=== PATIENT | female | born 1975 | race Caucasian/White ===

== ENCOUNTER 2017-01-30 17:22 | Emergency (ER) | payer MEDICAID ==
[2017-01-30 18:03] VITALS: BP 123/72
--- NOTE | 2017-01-30 19:26 | UC ---
Lower Extremity/Ankle HPI - HPI Summary HPI Summary: right lower lateral leg pain, tingling pain above lateral ankle---no calf pain, no cord or erythema - History of Current Complaint Chief Complaint: UCLowerExtremity Stated Complaint: RT LEG PAIN,TINGLING,SWELLING,BURNING FEELING Time Seen by Provider: 01/30/17 19:17 Hx Obtained From: Patient Hx Last Menstrual Period: ablasion ?: No Onset/Duration: Gradual Onset, Lasting Weeks, Still Present Severity Initially: Moderate Severity Currently: Moderate Pain Intensity: 8 Pain Scale Used: 0-10 Numeric Aggravating Factor(s): Standing, Ambulation Alleviating Factor(s): Rest, Elevation Able to Bear Weight: Yes - Allergies/Home Medications Allergies/Adverse Reactions: Allergies Allergy/AdvReac Type Severity Reaction Status Date / Time No Known Allergies Allergy Verified 01/30/17 17:59 PMH/Surg Hx/FS Hx/Imm Hx Previously Healthy: Yes - Surgical History Surgical History: Yes Surgery Procedure, Year, and Place: 3 c-sections. choley, uterine ablasion, 2 knee surgeries, exp lap - Family History Known Family History: Positive: None Family History: no reported cardiovascular issues in family lineage - Social History Occupation: Employed Full-time Lives: With Family Alcohol Use: Rare Substance Use Type: None Smoking Status (MU): Heavy Every Day Tobacco Smoker Type: Cigarettes Cessation Counseling: Counseled 3+Min - 10 Min Review of Systems Constitutional: Negative Skin: Negative Eyes: Negative ENT: Negative Respiratory: Negative Cardiovascular: Negative Gastrointestinal: Negative Genitourinary: Negative Motor: Negative Neurovascular: Negative Musculoskeletal: Arthralgia - lateral lower lright leg pain Neurological: Negative Psychological: Negative All Other Systems Reviewed And Are Negative: Yes Physical Exam Triage Information Reviewed: Yes Appearance: Well-Appearing, No Pain Distress, Well-Nourished Vital Signs: Initial Vital Signs Temp 99.1 F 01/30/17 18:01 Pulse 86 01/30/17 18:01 Resp 18 01/30/17 18:01 BP 123/72 01/30/17 18:01 Pulse Ox 98 01/30/17 18:01 Vital Signs Reviewed: Yes Eye Exam: Normal Eyes: Positive: Conjunctiva Clear ENT Exam: Normal ENT: Positive: Normal ENT inspection, Hearing grossly normal. Negative: Nasal congestion, Nasal drainage, Trismus, Muffled/hoarse voice Dental Exam: Normal Neck exam: Normal Neck: Positive: Supple, Nontender Respiratory Exam: Normal Respiratory: Positive: Chest non-tender, No respiratory distress, No accessory muscle use Cardiovascular Exam: Normal Cardiovascular: Positive: RRR, Pulses Normal, Brisk Capillary Refill Musculoskeletal Exam: Normal Musculoskeletal: Positive: Strength Intact, ROM Intact, No Edema Neurological Exam: Normal Neurological: Positive: Alert, Muscle Tone Normal Psychological Exam: Normal Skin Exam: Normal Diagnostics - Radiology No standard instances Xray Interpretation: No Acute Changes Radiology Interpretation Completed By: Radiologist Lower Extremity Course/Dx - Course Course Of Treatment: crutches, rice, pain med follow with ortho - Differential Dx/Diagnosis Differential Diagnosis/HQI/PQRI: Contusion, Fracture (Closed), Sprain, Strain, Tendonitis Provider Diagnoses: right peroneal tendonitis Discharge - Discharge Plan Condition: Stable Disposition: HOME Prescriptions: Hydrocodone-Acetaminophen [Hydrocodone/Acetaminophen 5-325 mg] 1 tab PO Q6H PRN #12 tab MDD 4 PRN Reason: pain Ibuprofen TAB* [Motrin TAB* 600 MG] 600 mg PO Q6H PRN #40 tab PRN Reason: pain Patient Education Materials: Crutch Instructions (ED), Tendinitis (ED) Referrals: Trixie Rodriguez MD [Medical Doctor] - 5 Days
[2017-01-30] MEDS ORDERED: Ibuprofen TAB* 600 MG PO ONE (19:27)
--- NOTE | 2017-01-30 20:21 | RAD ---
Indication: Pain and tenderness to touch RIGHT lower leg and ankle without proceeding injury. Swelling. Comparison: No relevant prior exams available on the [facility] [place] for comparison. Technique: AP and lateral views RIGHT lower leg. AP, lateral, and oblique views of the RIGHT ankle. Report: Normal articular alignment. No significant arthropathic change evident. Negative for fracture or radiographic stigmata of stress reaction. Unremarkable soft tissue contours. IMPRESSION: Negative radiographic exam of the RIGHT lower leg and ankle.
--- NOTE | 2017-01-30 20:21 | RAD ---
Indication: Pain and tenderness to touch RIGHT lower leg and ankle without proceeding injury. Swelling. Comparison: No relevant prior exams available [place] the [facility] [place]. Technique: AP and lateral views RIGHT lower leg. AP, lateral, and oblique views of the RIGHT ankle. Report: Normal articular alignment. No significant arthropathic change evident. Negative for fracture or radiographic stigmata of stress reaction. Unremarkable soft tissue contours. IMPRESSION: Negative radiographic exam of the RIGHT lower leg and ankle.
[2017-01-30] MEDS ORDERED: HYDROcodone/ACETAMIN 5-325 MG* 1 TAB PO ONE (20:34)
== END 2017-01-30 21:22 | disposition home or self-care (01) ==
LOC: UCEAST 17:22
DX: M76.71 Peroneal tendinitis, right leg (principal); F17.210 Nicotine dependence, cigarettes, uncomplicated
CPT/HCPCS: 99213; A9270-GY; G0463

== ENCOUNTER 2019-02-12 09:16 | Emergency (ER) | payer SELFPAY ==
[2019-02-12] MEDS ORDERED: Morphine 4 MG/ML VIAL (1 ml) 4 MG/ML VIAL IV ONE ×2 (09:30→10:37)
[2019-02-12] MEDS ORDERED: Ondansetron INJ* 2 MG/ML VIAL IV ONE (09:30)
[2019-02-12] MEDS ORDERED: NS 0.9% 1000 ML** 1,000 ML IV ONE (09:30)
--- NOTE | 2019-02-12 09:30 | ED ---
Abdominal Pain/Female - HPI Summary HPI Summary: The patient is a 43 y/o F presenting to [facility] with a chief complaint of sudden onset LUQ pain this morning. She reports she was sitting down at work when the pain began. The pain does not radiate but is described as a sharp pain rated 4/ 10 in severity. There are no aggravating or alleviating factors. She additionally c/o nausea and dizziness. She denies fever, CP, vomiting, and rash. Hx of IBS. Surgical hx of cholecystectomy. FHx of DM, cardiac disease, HTN. Current every day smoker, occasional EtOH, no substance use. - History of Current Complaint Chief Complaint: EDGeneral Stated Complaint: BACK PAIN Time Seen by Provider: 02/12/19 09:22 Hx Obtained From: Patient Hx Last Menstrual Period: ablasion Onset/Duration: Sudden Onset, Lasting Minutes, Still Present Timing: Constant Severity Initially: Mild Severity Currently: Moderate Pain Intensity: 4 Pain Scale Used: 0-10 Numeric Location: Discrete At: LUQ Radiates: No Character: Sharp Aggravating Factor(s): Nothing Alleviating Factor(s): Nothing Associated Signs and Symptoms: Positive: Nausea, Other: - NEGATIVE: rash. Negative: Fever, Chest Pain, Vomiting Allergies/Adverse Reactions: Allergies Allergy/AdvReac Type Severity Reaction Status Date / Time No Known Allergies Allergy Verified 02/12/19 09:24 Home Medications: Home Medications Multivitamins/Minerals TAB* [Theragran/minerals TAB*] 1 tab PO DAILY 02/12/19 [ History Confirmed 02/12/19] PMH/Surg Hx/FS Hx/Imm Hx Endocrine/Hematology History: Denies: Hx Diabetes, Hx Thyroid Disease Cardiovascular History: Denies: Hx Hypercholesterolemia, Hx Hypertension Respiratory History: Denies: Hx Asthma, Hx Chronic Obstructive Pulmonary Disease (COPD) GI History: Reports: Hx Gall Bladder Disease - cholecystectomy Denies: Hx Ulcer - Surgical History Surgery Procedure, Year, and Place: 3 c-sections. choley, uterine ablasion, 2 knee surgeries, exp lap. cholecystectomy Infectious Disease History: No Infectious Disease History: Denies: Hx Clostridium Difficile, Hx Hepatitis, Hx Human Immunodeficiency Virus (HIV), Hx of Known/Suspected MRSA, Hx Shingles, Hx Tuberculosis, Hx Known/ Suspected VRE, Hx Known/Suspected VRSA, History Other Infectious Disease, Traveled Outside the [place] in Last 30 Days - Family History Known Family History: Positive: Cardiac Disease, Hypertension, Diabetes - Social History Alcohol Use: Rare Hx Substance Use: No Substance Use Type: Reports: None Hx Tobacco Use: Yes Smoking Status (MU): Heavy Every Day Tobacco Smoker Type: Cigarettes Review of Systems Negative: Fever Negative: Chest Pain Positive: Abdominal Pain - LUQ, Nausea. Negative: Vomiting Negative: Rash Neurological: Other - POSITIVE: dizziness All Other Systems Reviewed And Are Negative: Yes Physical Exam - Summary Physical Exam Summary: VITAL SIGNS: Reviewed. GENERAL: Patient is a well-developed and nourished female who is lying comfortable in the stretcher. Patient is not in any acute respiratory distress. HEAD AND FACE: Normocephalic and atraumatic. EYES: PERRLA, EOMI x 2, No injected conjunctiva. EARS: Hearing grossly intact. Ear canals and tympanic membranes are WNL. MOUTH: Oropharynx within normal limits. NECK: Supple, trachea is midline, no adenopathy, no JVD. CHEST: Symmetric, no tenderness at palpation. LUNGS: Clear to auscultation bilaterally. No wheezing or crackles. CVS: RRR, S1 and S2 present, no murmurs or gallops appreciated. ABDOMEN: Soft, LUQ tenderness. No signs of distention. Positive bowel sounds. No rebound, no guarding, and no masses palpated. No abdominal bruit or pulsations. EXTREMITIES: FROM in all major joints, no edema, no cyanosis or clubbing. NEURO: Alert and oriented x 3. No acute neurological deficits. Speech is normal. SKIN: Dry and warm. Triage Information Reviewed: Yes Vital Signs On Initial Exam: Initial Vitals Temp Pulse Resp BP Pulse Ox 97.5 F 63 14 130/88 100 02/12/19 09:21 02/12/19 09:21 02/12/19 09:21 02/12/19 09:21 02/12/19 09:21 Vital Signs Reviewed: Yes Diagnostics - Vital Signs Vital Signs Temp Pulse Resp BP Pulse Ox 02/12/19 09:22 71 100 02/12/19 09:21 97.5 F 63 14 130/88 100 - Laboratory Result Diagrams: 02/12/19 09:38 02/12/19 09:38 Lab Statement: Any lab studies that have been ordered have been reviewed, and results considered in the medical decision making process. - Radiology Ribs with Chest XR Radiology Interpretation Completed By: Radiologist Summary of Radiographic Findings: No displaced rib fracture or pneumothorax. If there is persistent clinical concern for osseous pathology of the ribs, bone scanning may be more sensitive. ED physician has reviewed this radiology report. - CT Abd/Pel CT CT Interpretation Completed By: Radiologist Summary of CT Findings: 1. Fatty infiltration of the liver. 2. Status post cholecystectomy. 3. Fibroid uterus. 4. No acute CT pathology of the visualized abdomen or pelvis. ED physician has reviewed this radiology report. - EKG 0934 Cardiac Rate: Bradycardia - 56 BPM EKG Rhythm: Sinus Bradycardia Summary of EKG Findings: No ST elevations. Re-Evaluation - Re-Evaluation First Eval Re-Evaluation Time: 12:15 Change: Unchanged Comment: The patient states she is still in pain. I will order Toradol. Second Eval Re-Evaluation Time: 13:00 Change: Improved Comment: The patient's pain has improved with Toradol. We discussed discharge and follow up. Abdominal Pain Fem Course/Dx - Course Course Of Treatment: The patient is a 43 y/o F presenting to [facility] with a chief complaint of sudden onset LUQ pain this morning. She reports she was sitting down at work when the pain began. The pain does not radiate but is described as a sharp pain rated 4/10 in severity. There are no aggravating or alleviating factors. She additionally c/o nausea and dizziness. She denies fever, CP, vomiting, and rash. Hx of IBS. Surgical hx of cholecystectomy. FHx of DM, cardiac disease, HTN. Current every day smoker, occasional EtOH, no substance use. Blood work without any significant abnormality except for WBCs of 15.3, carbon dioxide of 19, glucose of 111, and troponin of 0.00. Urinalysis is negative for UTI. Abdominopelvic CT impression: Fatty infiltration of the liver. Status post cholecystectomy, fibroid uterus. Chest x-ray and left rib x ray impression: no displaced rib fractures or pneumothorax. D-dimer is less than 200, which is negative for PE. In the ED course, the patient was given 2 doses of morphine, and the pain did not improve. Therefore, Ill give the patient 1 dose of Toradol; the pain significantly improved. The patient is eating and drinking without nausea or vomiting. The pain has improved so the patient will be discharged home with follow-up with PCP. She will be recommended to take ibuprofen for pain and follow with the primary care physician. I discussed all the findings and test results with the patient. Patient was instructed to return to the emergency room immediately if any of the symptoms return or worsen. Plan of care was discussed with the patient and understands and agrees. All questions were answered at patient satisfaction. There were no further complaints or concerns. Lung exam before discharge: CTA B/ L. Good air exchange. No wheezing or crackles heard. CVS: S1 and S2 present. No murmurs appreciated. Patient is alert and oriented x 3. Patient is hemodynamically stable. Patient will be discharged home with follow up PCP in the next 2-3 days. - Diagnoses Provider Diagnoses: Left upper quadrant pain, Rib pain on left side Discharge - Sign-Out/Discharge Documenting (check all that apply): Patient Departure - Patient will be discharged home. Patient Received Moderate/Deep Sedation with Procedure: No - Discharge Plan Condition: Stable Disposition: HOME Patient Education Materials: Acute Abdominal Pain (DC) [place]errals: [facility] [place]] - 3 Days Additional Instructions: Follow up with your primary care provider in 2-3 days. RETURN TO THE EMERGENCY DEPARTMENT FOR ANY NEW OR WORSENING SYMPTOMS. - Billing Disposition and Condition Condition: STABLE Disposition: Home - Attestation Statements Document Initiated by Laurie: Yes Documenting Scribe: Taylor Arceo Provider For Whom Laurie is Documenting (Include Credential): Dr. Michael Saini MD Scribe Attestation: Taylor Hansen scribed for Dr. Michael Saini MD on 02/12/19 at 1320. Scribe Documentation Reviewed: Yes Provider Attestation: The documentation as recorded by the Taylor patel accurately reflects the service I personally performed and the decisions made by me, Dr. Michael Saini MD Status of Scribstephanie Document: Ready
[2019-02-12 09:45] LABS: ABS Basophils 0.1 10^3/ul (0-0.2); ABS Eosinophils 0.1 10^3/ul (0-0.6); ABS Lymphocytes 3.7 10^3/ul (1.0-4.8); ABS Monocytes 0.4 10^3/ul (0-0.8); ABS Neutrophils 10.9 10^3/ul (1.5-7.7); Eosinophil % 0.9 %; Hematocrit 42 % (35-47); Hemoglobin 14.7 g/dL (12.0-16.0); Lymphocyte % 24.3 %; Mean Corpuscular HGB Conc 35 g/dL (31-36); Mean Corpuscular Hemoglobin 33 pg (27-31); Mean Corpuscular Volume 94 fL (80-97); Mean Platelet Volume 7.7 fL (7.4-10.4); Nucleated Red Blood Cells % 0.1; Platelet Count 355 10^3/uL (150-450); Red Blood Count 4.44 10^6 /uL (3.70-4.87); Red Cell Distribution Width 13 % (10-15); White Blood Count 15.3 10^3/uL (3.5-10.8)
[2019-02-12 10:13] LABS: Albumin 4.1 g/dL (3.2-5.2); Albumin/Globulin Ratio 1.5 (1-3); BUN/Creatinine Ratio 10.3 (8-20); C Reactive Protein 3.72 mg/L (<8.01); Calcium 9.6 mg/dL (8.6-10.3); EGFR African American 113.7 (>60); Globulin 2.7 g/dL (2-4); Potassium 3.5 mmol/L (3.5-5.0); Total Bilirubin 0.5 mg/dL (0.2-1.0); Total Protein 6.8 g/dL (6.4-8.9)
[2019-02-12 10:28] LABS: Urine Appearance Clear; Urine Bilirubin Negative (Negative); Urine Blood Negative (Negative); Urine Color Yellow; Urine Glucose Negative (Negative); Urine Ketones Trace (Negative); Urine Nitrite Negative (Negative); Urine Protein Negative (Negative); Urine Specific Gravity 1.001 (1.010-1.030); Urine Urobilinogen Negative (Negative)
[2019-02-12] MEDS ORDERED: Iohexol 300* (CONTRAST) 10 ML SDV IV ONE (10:34)
[2019-02-12] MEDS ORDERED: Ketorolac INJ* 30 MG/ML 1 ML VIAL IV PUSH ONE (12:15)
[2019-02-12 13:36] VITALS: BP 104/73
== END 2019-02-12 13:38 | disposition home or self-care (01) ==
LOC: ED 09:16
DX: R10.12 Left upper quadrant pain (principal); R07.81 Pleurodynia; F17.210 Nicotine dependence, cigarettes, uncomplicated; K76.0 Fatty (change of) liver, not elsewhere classified; Z90.49 Acquired absence of other specified parts of digestive tract; D25.9 Leiomyoma of uterus, unspecified
CPT/HCPCS: 36415; 74177; 80053; 81003; 82150; 82550; 83605; 83690; 83735; 84484; 85025; 85379; 86140; 93005; 96361; 96374; 96375; 99283; J1885; J2270; J2405; Q9967

== ENCOUNTER 2019-10-10 14:59 | Emergency (ER) | payer BC ==
[2019-10-10 16:25] VITALS: BP 96/74
--- NOTE | 2019-10-10 18:05 | UC ---
Complaint Female HPI - HPI Summary HPI Summary: 44 yo well woman presents without symptoms for evaluation and treatment of Trichomonas based on positve presence in her male sexual partner. No past hx of Trich or STI's. , no urinary symptoms. Discussed recommendation for STI testing and she agrees, but declines having evaluation for vaginosis. New sexual partner 2 months ago, monogamous within that relationship. - History Of Current Complaint Chief Complaint: UCSTDScreening Stated Complaint: PERSONAL Time Seen by Provider: 10/10/19 17:53 Hx Obtained From: Patient Hx Last Menstrual Period: n/a pt had an ablation Severity Currently: None Pain Intensity: 0 - Allergies/Home Medications Allergies/Adverse Reactions: Allergies Allergy/AdvReac Type Severity Reaction Status Date / Time adhesive tape Allergy Rash And Verified 10/10/19 16:19 Itching Home Medications: Home Medications Multivitamins/Minerals TAB* [Theragran/minerals TAB*] 1 tab PO DAILY 02/12/19 [ History Confirmed 10/10/19] metroNIDAZOLE [Flagyl 500 MG TAB] 2,000 mg PO ONCE #4 tablet 10/10/19 [Rx] PMH/Surg Hx/FS Hx/Imm Hx Previously Healthy: Yes - Surgical History Surgical History: Yes Surgery Procedure, Year, and Place: 3 c-sections. cholecystectomy. exploratory laparotomy. uterine ablasion. 2 knee surgeries - Family History Known Family History: Positive: Cardiac Disease, Hypertension, Diabetes, Other - son has bicuspid aortic valve. Family History: no reported cardiovascular issues in family lineage - Social History Occupation: Employed Full-time Alcohol Use: Rare Substance Use Type: None Smoking Status (MU): Heavy Every Day Tobacco Smoker Type: Cigarettes Amount Used/How Often: 1 ppd Review of Systems All Other Systems Reviewed And Are Negative: Yes Constitutional: Positive: Negative Skin: Positive: Negative Eyes: Positive: Negative ENT: Positive: Negative Respiratory: Positive: Negative Cardiovascular: Positive: Negative Gastrointestinal: Positive: Negative Genitourinary: Positive: Negative Motor: Positive: Negative Neurovascular: Positive: Negative Musculoskeletal: Positive: Negative Neurological/Mental Status: Positive: Negative Psychological: Positive: Anxious Is Patient Immunocompromised?: No Physical Exam Triage Information Reviewed: Yes Appearance: Well-Appearing Vital Signs: Initial Vital Signs Temp 98.2 F 10/10/19 16:20 Pulse 83 10/10/19 16:20 Resp 15 10/10/19 16:20 BP 96/74 10/10/19 16:20 Pulse Ox 99 10/10/19 16:20 Eye Exam: Normal ENT Exam: Normal Dental Exam: Normal Neck exam: Normal Respiratory: Positive: Lungs clear, Normal breath sounds Cardiovascular: Positive: RRR, Murmur:Sys:Grade _?_/ - 1-2/6 systolic murmur left sternal border Musculoskeletal Exam: Normal Musculoskeletal: Positive: No Edema Psychological Exam: Normal Skin Exam: Normal Complaint Female Dx - Course Course Of Treatment: treat with single dose metronidazole for likely Trich. Await other testing results. - Differential Dx/Diagnosis Differential Diagnosis/HQI/PQRI: Other - Trichomonas, STI's Provider Diagnosis: Trichomonas contact, treated Discharge ED - Sign-Out/Discharge Documenting (check all that apply): Patient Departure All imaging exams completed and their final reports reviewed: No Studies - Discharge Plan Condition: Stable Disposition: HOME Prescriptions: metroNIDAZOLE [Flagyl 500 MG TAB] 2,000 mg PO ONCE #4 tablet Patient Education Materials: Trichomoniasis (ED) Referrals: Cornell Diaz PA [Primary Care Provider] - Additional Instructions: You are receivng single dose treatment for suspected Trichomonas. Testing has also been done for Chlamydia and gonorrhea and you will be called if these tests are positive. As reviewed, a soft murmur was heard today. I would suggest follow up assessment to decide if this is persistent and if any testing is indicated. - Billing Disposition and Condition Condition: STABLE Disposition: Home
[2019-10-13 13:12] LABS: Chlamydia trachomatis NAA Negative (Negative); Neisseria gonorrhoeae (GC) NAA Negative (Negative)
== END 2019-10-10 18:20 | disposition home or self-care (01) ==
LOC: UCCORT 14:59
DX: Z11.3 Encounter for screening for infections with a predominantly sexual mode of transmission (principal); F17.210 Nicotine dependence, cigarettes, uncomplicated; Z91.09 Other allergy status, other than to drugs and biological substances
CPT/HCPCS: 87491; 87591; 87661; 99212; G0463